=== PATIENT | female | born 1975 | race Two or more races ===

== ENCOUNTER → 2022-06-27 | Day surgery (SDC) | payer OTHER ==
[~2022-06-27] VITALS: Ht 165.1 cm; Wt 63.0 kg
== END | disposition home or self-care (01) ==
LOC: ADM 06-23 08:15 → CIR.AMB 06:00
PROVIDERS: ATTEND Student in an Organized Health Care Education/Training Program
DX: N95.0 Postmenopausal bleeding (principal); N87.9 Dysplasia of cervix uteri, unspecified; Z20.822 Contact with and (suspected) exposure to COVID-19; E66.09 Other obesity due to excess calories; Z88.1 Allergy status to other antibiotic agents